=== PATIENT | male | born 1945 | race American Indian/Alaskan Native ===

== ENCOUNTER 2016-09-29 09:28 | Outpatient (CLI) | payer MEDICARE ==
--- NOTE | 2016-09-29 10:25 | Fluoroscopy Report ---
Barium swallow: History: Dysphagia. Transit of barium through cervical esophagus and the upper thoracic esophagus appears unremarkable. There is stasis of barium noted due to delayed emptying at the mid thoracic esophagus below the aortic arch. Due to this there is reflux of barium noted extending to the cervical esophagus. The distal third of the esophagus appears unremarkable. No evidence of hiatal hernia. No intrinsic filling defects. No evidence of ulceration. Impression: Reflux of barium from mid esophagus to the cervical esophagus.
== END 2016-09-29 09:29 | disposition home or self-care (01) ==
LOC: FLUORO 09:28
DX: R13.10 Dysphagia, unspecified (principal)
CPT/HCPCS: 74220

== ENCOUNTER 2020-07-22 17:24 | Emergency (ER) | payer MEDICARE ==
--- NOTE | 2020-07-22 19:18 | Event Note ---
ED Screening Note Date of service: 07/22/20 Time: 19:18 ED Screening Note: 74-year-old male patient presents to the emergency department with complaints of painless rectal bleeding starting today. States he is not anticoagulated. No history of similar symptoms. General: Awake, appropriately interactive, no acute distress. Neck: Supple. Full range of motion intact. Cardiovascular: Normal peripheral perfusion. Pulmonary: No respiratory distress. Patient is speaking normally without use of accessory muscles. Abdomen: Soft, nontender, nondistended. Skin: No apparent rashes or lesions. Neurological: No facial asymmetry. Speech is clear. Follows commands. Patient is alert and oriented. Musculoskeletal: Moves all four extremities spontaneously with normal range of motion. Psych: Cooperative. Appropriate mood and affect. I have greeted and performed a focused rapid initial assessment of this patient. A comprehensive ED assessment and evaluation of the patient, analysis of all test results, and completion of the medical decision-making process will be conducted by additional ED providers. This initial assessment/diagnostic orders/clinical plan/treatment(s) is/are subject to change based on patients health status, clinical progression and re-assessment. Further treatment and workup at subsequent clinical provider's discretion. Patient/guardian urged not to elope from the ED as their condition may be serious if not clinically assessed and managed.
[2020-07-22 19:19] VITALS: BP 198/110
[2020-07-22 19:37] LABS: Basophils % (Auto) 0.3 % (0.0-1.8); Eosinophils # (Auto) 0.1 K/mm3 (0.0-0.4); Eosinophils % (Auto) 0.6 % (0.0-4.3); Hematocrit 43.7 % (35.5-45.6); Hemoglobin 14.2 gm/dl (11.8-15.2); Lymphocytes # (Auto) 1.5 K/mm3 (1.2-5.4); Lymphocytes % (Auto) 11.3 % (13.4-35.0); Mean Corpuscular HGB Conc 33 % (32-34); Mean Corpuscular Volume 73 fl (84-94); Monocytes # (Auto) 1.2 K/mm3 (0.0-0.8); Monocytes % (Auto) 8.6 % (0.0-7.3); Platelet Count 163 K/mm3 (140-440); Red Blood Count 5.99 M/mm3 (3.65-5.03); Red Cell Distribution Width 16.8 % (13.2-15.2)
[2020-07-22 19:58] LABS: Albumin 4.2 g/dL (3.9-5)
[2020-07-22 20:54] LABS: BUN/Creatinine Ratio 18; Blood Urea Nitrogen 14 mg/dL (9-20); Calcium 9.6 mg/dL (8.4-10.2); Hemolysis Index 25
[2020-07-22 21:21] LABS: Alanine Aminotransferase 29 units/L (7-56)
[2020-07-22 23:14] LABS: INR 1.01 (0.87-1.13); Partial Thromboplastin Time 30.6 Sec. (24.2-36.6)
== END 2020-07-23 01:20 | disposition left against medical advice (07) ==
LOC: ED 17:24
DX: K62.5 Hemorrhage of anus and rectum (principal); Z53.21 Procedure and treatment not carried out due to patient leaving prior to being seen by health care provider
CPT/HCPCS: 36415; 80053; 83735; 85025; 85610; 85730; 86850; 86900; 86901